=== PATIENT | male | born 1990 | race African-American/Black ===

== ENCOUNTER 2018-04-09 07:31 | Emergency (ER) | payer OTHER ==
[~2018-04-09] VITALS: Ht 190.5 cm; Wt 86.6 kg
[2018-04-09 07:32] VITALS: Ht 190.5 cm; Wt 86.6 kg
[2018-04-09 08:06] LABS: BASOPHIL % 0.6 % (0-2); PLATELET COUNT 252 x10^3mcL (130-400)
[2018-04-09 08:23] LABS: CARBON DIOXIDE 21.4 mmol/L (21-32); CHLORIDE SERUM 96 mmol/L (98-107); GFR1 > 60 mL/min; GLUCOSE SERUM 78 mg/dL (74-106); POTASSIUM SERUM 3.4 mmol/L (3.5-5.1); SODIUM SERUM 134 mmol/L (136-145)
[2018-04-09 08:28] LABS: ALBUMIN 4.1 g/dL (3.4-5.0); ALKALINE PHOSPHATASE 77 U/L (46-116); ALT/SGPT 37 U/L (16-63); AST/SGOT 60 U/L (15-37); BILIRUBIN TOTAL 1.2 mg/dL (0.20-1.00)
[2018-04-09 08:31] LABS: TOTAL PROTEIN, SERUM 8.5 g/dL (6.4-8.2)
[2018-04-09 08:33] LABS: T3 TOTAL 0.99 ng/mL
[2018-04-09 08:43] LABS: RED CELL DISTRIBUTION WIDTH 15.1 % (11.5-14.5)
[2018-04-09 08:44] LABS: FREE T4 1.27 ng/dL (0.76-1.46); FREE THYROXINE INDEX 3.3 ug/dL (1.4-4.5); T4(THYROXINE) 8.8 ug/dL (4.7-13.3)
[2018-04-09 09:11] LABS: UA SPECIFIC GRAVITY >=1.030 (1.005-1.035); microscopic required? YES; urine erythrocyte 1+ (NEGATIVE)
[2018-04-09 09:12] LABS: AMPHETAMINE QUAL UR NONE DETECTED (See below)
[2018-04-09 11:17] VITALS: BP 177/90
== END 2018-04-09 11:17 | disposition home or self-care (01) ==
LOC: ED 07:31
PROVIDERS: Emergency Medicine
DX: N39.0 Urinary tract infection, site not specified (principal); R07.89 Other chest pain; I10 Essential (primary) hypertension
CPT/HCPCS: 84439; J2060; Q0092

== ENCOUNTER 2018-05-04 11:44 | Emergency (ER) | payer OTHER ==
[~2018-05-04] VITALS: Ht 190.5 cm; Wt 87.5 kg
[2018-05-04 11:52] VITALS: Ht 190.5 cm; Wt 87.5 kg
[2018-05-04 13:03] VITALS: BP 165/118
== END 2018-05-04 13:03 | disposition home or self-care (01) ==
LOC: ED 11:44
DX: F41.9 Anxiety disorder, unspecified (principal); R07.89 Other chest pain; I10 Essential (primary) hypertension
CPT/HCPCS: Q0092

== ENCOUNTER 2018-07-24 01:29 | Inpatient (IN) | payer OTHER ==
[~2018-07-24] VITALS: Ht 190.5 cm; Wt 85.7 kg
[2018-07-24 01:37] VITALS: Ht 190.5 cm; Wt 85.7 kg
--- NOTE | 2018-07-24 01:45 | NUR ---
PT CAME TO ED WITH CO VOMITTING/NAUSEA SINCE THIS EVENING. PT STATES HE DRANK 1 BOTTLE OF VODKA TONIGHT. STATES HE WAS "STRESS DRINKING". STATES HE HAS ANXIETY AND HAD TOO MUCH TO DRINK TONIGHT. PT IS AWAKE, ALERT AND ORINETED. STATES VOMITTED 4 TIMES TONIGHT AND HAS STILES 10/10 PAIN AND STILL FEELS ANXIOUS. PT RESP E/U. STATES HAS HIGH BP
[2018-07-24 02:25] LABS: CALCIUM 10.1 mg/dL (8.5-10.1); CARBON DIOXIDE 15.6 mmol/L (21-32); CHLORIDE SERUM 99 mmol/L (98-107); CREATININE SERUM 1.2 mg/dL (0.7-1.3); GFR1 > 60 mL/min; GLUCOSE SERUM 63 mg/dL (74-106); POTASSIUM SERUM 3.7 mmol/L (3.5-5.1); SODIUM SERUM 141 mmol/L (136-145)
[2018-07-24 02:26] LABS: BASOPHIL % 0.2 % (0-2); PLATELET COUNT 225 x10^3mcL (130-400); RED CELL DISTRIBUTION WIDTH 14.1 % (11.5-14.5)
[2018-07-24 02:30] LABS: ALBUMIN 4.4 g/dL (3.4-5.0); ALKALINE PHOSPHATASE 73 U/L (46-116); ALT/SGPT 140 U/L (16-63); AST/SGOT 414 U/L (15-37); TOTAL PROTEIN, SERUM 8.7 g/dL (6.4-8.2)
--- NOTE | 2018-07-24 03:27 | NUR ---
DR VILLAFANA AWARE OF PT HIGH BP
[2018-07-24 04:20] LABS: UA SPECIFIC GRAVITY >=1.030 (1.005-1.035); microscopic required? YES; urine erythrocyte 1+ (NEGATIVE)
--- NOTE | 2018-07-24 04:25 | NUR ---
DR VILLAFANA AT BEDSIDE TO DISCUSS RESULTS AND PLAN OF CARE
[2018-07-24 04:29] LABS: AMPHETAMINE QUAL UR NONE DETECTED (See below)
[2018-07-24 04:38] LABS: MAGNESIUM 1.9 mg/dL (1.8-2.4); PHOSPHOROUS 5.1 mg/dL (2.5-4.9)
[2018-07-24 04:39] LABS: CHOLESTEROL/HDL RATIO 1.9
--- NOTE | 2018-07-24 04:39 | NUR ---
REPORT GIVEN TO REDD DELEON TO RESUME CARE OF PT UPON TRANSFER
[2018-07-24 04:45] LABS: FREE T4 1.14 ng/dL (0.76-1.46); FREE THYROXINE INDEX 2.7 ug/dL (1.4-4.5); T4(THYROXINE) 7.4 ug/dL (4.7-13.3)
[2018-07-24 05:40] VITALS: BP 165/88
--- NOTE | 2018-07-24 06:31 | NUR ---
RECIEVED PATIENT FROM ED AT 0510 AWAKE, A/O X4. AMBULATORY WITHOUT ASSIST. ANXIOUS BUT COOPERATIVE. NO SOB ON RA. NO COMPLAINT OF PAIN.BLOOD PRESSURE 165/88, HR 111. MONITOR 6 S[address], IV INFUSING WITHOUT REDNESS OR EDEMA. PATIENT ORIENETED TO ROOM AND USE OF CALL LIGHT. PATIENT STATES HE STRUGGLES WITH A HX OF ANXIETY AND BINGE DRINKS ALCOHOL ON THE WEEKENDS TO COPE. PATIENT ADMITS HE NEEDS TO FOLLOW UP WITH HIS PRIMARY CARE PHYSICIAN TO WORK OUT MEDICATION FOR HIS ANXIETY AND HTN. LUNGS ARE CTAB. NO EDEMA NOTED, PULSES STRONG. ABDOMEN FALT AND SOFT, BOWEL SOUNDS ACTIVE. BED LOCKED AND IN LOWEST POSITION, CALL LIGHT AND BEDSIDE TABLE WITHIN REACH. WILL CONTINUE TO MONITOR.
--- NOTE | 2018-07-24 07:13 | NUR ---
NO CHANGE IN STATUS SINCE ADMISSION, WILL ENDORSE CARE TO MORNING NURSE.
[2018-07-24 07:37] LABS: ALBUMIN 3.8 g/dL (3.4-5.0); BILIRUBIN DIRECT 0.27 mg/dL (0.0-0.2); BILIRUBIN TOTAL 0.8 mg/dL (0.20-1.00); TOTAL PROTEIN, SERUM 7.6 g/dL (6.4-8.2)
--- NOTE | 2018-07-24 08:00 | NUR ---
AWAKE,ALERT AND ORIENTED,DENIES ANY PAIN AT THIS TIME,AMBULATED IN THE BATHROOM AND VOIDING WELL.NO ACUTE DISTRESS NOTED . ATE BREAKFAST WELL. CONT. IV FLUIDS ORDERED.WILL CONT. PLAN OF CARE.
[2018-07-24 13:40] VITALS: BP 169/103
[2018-07-24] MEDS ORDERED: IND20 PO (14:00)
--- NOTE | 2018-07-24 14:01 | NUR ---
MADE AWARE BY TELE MONITOR PT WITH SLIGHT ELEVATION ON T-WAVE FROM THIS AM. SHOWN TO DR. BALLESTEROS AT STATION SHOWN RHYTHMS. PER MD VIGIL TO D/C.
--- NOTE | 2018-07-24 15:08 | NUR ---
PT. WENT HOME W/ STABLE CONDITION AMBULATORY ACC. W/ HIS ,DISCHARGE INSTRUCTIONS AND PRESCRIPTION GIVEN AND DISCUSSED TO PT. AND VERBALIZED UNDERSTANDING OF INSTRUCTIONS GIVEN NO ACUTE DISTRESS NOTED. ESCORTED BY NURSE IN THE LOBBY.
== END 2018-07-24 15:02 | disposition home or self-care (01) | DRG 896 ==
LOC: ED 01:29 → DU 03:58
PROVIDERS: Emergency Medicine; ADMIT Internal Medicine
DX: F10.129 Alcohol abuse with intoxication, unspecified (principal); G92 Toxic encephalopathy; E87.2 Acidosis; Y90.1 Blood alcohol level of 20-39 mg/100 ml; I16.0 Hypertensive urgency; K29.20 Alcoholic gastritis without bleeding; D72.829 Elevated white blood cell count, unspecified
CPT/HCPCS: 83880; 84439; G0480; J0780; J2060; J2405; J3490; Q0092

== ENCOUNTER 2019-02-10 02:39 | Emergency (ER) | payer OTHER ==
[~2019-02-10] VITALS: Ht 190.5 cm; Wt 88.5 kg
[~2019-02-10 02:39] MED LIST: IND20 PO
[2019-02-10 03:08] LABS: BASOPHIL % 0.6 % (0-2); PLATELET COUNT 281 x10^3mcL (130-400); RED CELL DISTRIBUTION WIDTH 13.8 % (11.5-14.5)
[2019-02-10 03:21] LABS: CALCIUM 8.5 mg/dL (8.5-10.1); CARBON DIOXIDE 27.7 mmol/L (21-32); CHLORIDE SERUM 103 mmol/L (98-107); CREATININE SERUM 1.1 mg/dL (0.7-1.3); GFR1 > 60 mL/min; GLUCOSE SERUM 136 mg/dL (74-106); POTASSIUM SERUM 3.1 mmol/L (3.5-5.1); SODIUM SERUM 144 mmol/L (136-145)
[2019-02-10 03:28] LABS: ALBUMIN 3.8 g/dL (3.4-5.0); ALKALINE PHOSPHATASE 66 U/L (46-116); ALT/SGPT 36 U/L (16-63); AST/SGOT 41 U/L (15-37); BILIRUBIN TOTAL 0.5 mg/dL (0.20-1.00); TOTAL PROTEIN, SERUM 8.1 g/dL (6.4-8.2)
[2019-02-10 04:28] VITALS: BP 147/96
== END 2019-02-10 04:28 | disposition home or self-care (01) ==
LOC: ED 02:39
PROVIDERS: Specialist
DX: F41.9 Anxiety disorder, unspecified (principal); I10 Essential (primary) hypertension
CPT/HCPCS: J1885; J2060; J3490; Q0092

== ENCOUNTER 2019-08-07 10:41 | Emergency (ER) | payer OTHER ==
[~2019-08-07] VITALS: Ht 190.5 cm; Wt 94.8 kg
[2019-08-07 10:54] VITALS: Ht 190.5 cm; Wt 94.8 kg
[2019-08-07 13:23] VITALS: BP 184/113
== END 2019-08-07 12:28 | disposition left against medical advice (07) ==
LOC: ED 10:41
DX: F41.9 Anxiety disorder, unspecified (principal); R06.4 Hyperventilation; I10 Essential (primary) hypertension; K42.9 Umbilical hernia without obstruction or gangrene
CPT/HCPCS: J1630; J2060; Q0092

== ENCOUNTER 2020-01-04 16:01 | Emergency (ER) | payer OTHER ==
[~2020-01-04] VITALS: Ht 190.5 cm; Wt 95.3 kg
[2020-01-04 16:22] VITALS: Ht 190.5 cm; Wt 95.3 kg
[2020-01-04 18:15] LABS: BASOPHIL % 0.3 % (0-2); PLATELET COUNT 200 x10^3mcL (130-400)
[2020-01-04 19:01] LABS: ALBUMIN 4.5 g/dL (3.4-5.0); ALKALINE PHOSPHATASE 89 U/L (46-116); ALT/SGPT 170 U/L (16-63); AST/SGOT 212 U/L (15-37); BILIRUBIN TOTAL 1.92 mg/dL (0.20-1.00); CALCIUM 10.3 mg/dL (8.5-10.1); CARBON DIOXIDE 34.7 mmol/L (21-32); CHLORIDE SERUM 91 mmol/L (98-107); CREATININE SERUM 1.2 mg/dL (0.7-1.3); GFR1 > 60 mL/min; GLUCOSE SERUM 112 mg/dL (74-106); LIPASE 118 IU/L (73-393); SODIUM SERUM 139 mmol/L (136-145); TRIGLYCERIDES 75 mg/dL (<150)
[2020-01-04 19:02] LABS: CHOLESTEROL 277 mg/dL (<200); CHOLESTEROL/HDL RATIO 1.9; HDL CHOLESTEROL 145 mg/dL (40-60); TOTAL PROTEIN, SERUM 9.5 g/dL (6.4-8.2)
[2020-01-04 19:03] LABS: POTASSIUM SERUM 2.9 mmol/L (3.5-5.1)
[2020-01-04 19:57] VITALS: BP 153/107
== END 2020-01-04 19:57 | disposition home or self-care (01) ==
LOC: ED 16:01
PROVIDERS: Specialist
DX: K29.20 Alcoholic gastritis without bleeding (principal); E87.6 Hypokalemia; F41.9 Anxiety disorder, unspecified; I10 Essential (primary) hypertension
CPT/HCPCS: G0480; J2060; Q0092